=== PATIENT | male | born 1980 | race African-American/Black ===

== ENCOUNTER 2023-07-03 19:37 | Emergency (ER) | payer SELFPAY ==
[2023-07-03] MEDS ORDERED: KETOROLAC TROMETHAMINE 30 MG/1 ML VIAL IVPUSH ONE (19:47)
[2023-07-03] MEDS ORDERED: SODIUM CHLORIDE 1,000 ML IV STA (19:47)
[2023-07-03 20:01] VITALS: BP 130/78; PULSE 63; RESP 18; TEMP 99.4; BMI 26.7
[2023-07-03] MEDS ORDERED: KETOROLAC TROMETHAMINE 30 MG/1 ML VIAL ONE (20:08)
[2023-07-03 20:38] LABS: HEMATOCRIT 44.8 % (35.4-49); HEMOGLOBIN 14.9 G/dL (11.7-16.9); MCH 31.5 pg (25.7-33.7); MCHC 33.2 g/dl (32.0-35.9); MEAN CELL VOLUME 94.7 fl (80-96); MEAN PLT VOLUME 8.9 fl (7.5-11.1); PLATELET COUNT 213.5 10^3/uL (134-434); RBC 4.73 10^6/uL (4.00-5.60); RDW 12.9 % (11.9-15.9); WHITE BLOOD COUNT 8.8 10^3/uL (4.0-10.8)
[2023-07-03 20:49] LABS: ALBUMIN 4.5 g/dl (3.4-5.0); BLOOD UREA NITROGEN 22.3 mg/dl (7-18); CALCIUM 9.6 mg/dl (8.5-10.1); CREATININE 2.2 mg/dl (0.6-1.3); POTASSIUM 3.8 mmol/L (3.5-5.1); SGOT/AST 14.9 U/L (15-37); SGPT/ALT 14.2 U/L (7-52); TOT PROT 7.5 g/dl (6.4-8.2)
[2023-07-03 20:54] LABS: PLATELET ESTIMATE ADEQUATE
[2023-07-03 21:35] LABS: BILIRUBIN,TOTAL 0.8 mg/dL (0.2-1)
== END 2023-07-03 21:46 | disposition home or self-care (01) ==
LOC: FER 19:37
PROC: 3E0333Z Introduction of Anti-inflammatory into Peripheral Vein, Percutaneous Approach (ICD-10-PCS; principal; 2023-07-03)
PROC: 3E0337Z Introduction of Electrolytic and Water Balance Substance into Peripheral Vein, Percutaneous Approach (ICD-10-PCS; 2023-07-03)
DX: N23 Unspecified renal colic (principal); R11.2 Nausea with vomiting, unspecified; K59.00 Constipation, unspecified
CPT/HCPCS: 36415; 74176-TC; 80053; 85027; 99284-25